=== PATIENT | female | born 1965 | race Caucasian/White ===

== ENCOUNTER 2024-12-28 15:48 | Inpatient (IN) | payer OTHER, SELFPAY ==
[2024-12-28] VITALS (14 sets, daily range): BP systolic 103–152; BP diastolic 57–81; BMI 27.2
[2024-12-28 11:58] LABS: Hematocrit 40.7 % (37.0-47.0); Hemoglobin 13.4 g/dL (12.0-16.0); Mean Corp Hgb Conc. 32.9 g/dL (33.0-37.0); Mean Corpuscular Volume 94.2 fL (81.0-99.0); Platelet Count 259 10^3/uL (130-400); Red Cell Dist. Width 12.0 % (11.5-14.5)
[2024-12-28] MEDS: TORADOL 15 MG IV (12:08)
[2024-12-28] MEDS: DILAUDID 0.5 MG IV ×3 (12:08→15:47)
[2024-12-28] MEDS: NSS 500 IV (12:09)
[2024-12-28 12:14] LABS: ALT (SGPT) 17 U/L (0-35); AST (SGOT) 23 U/L (14-36); Albumin 4.8 g/dl (3.5-5.0); Alkaline Phosphatase 68 U/L (38-126); Blood Urea Nitrogen 14 mg/dl (7-17); Calcium 10.0 mg/dl (8.4-10.2); Carbon Dioxide 24 mmol/L (22-30); Chloride 105 mmol/L (98-107); Glucose 114 mg/dl (70-99); Potassium 4.2 mmol/L (3.5-5.1); Sodium 138 mmol/L (135-145); Total Protein 7.8 g/dl (6.3-8.2); eGFR > 60.00
--- NOTE | 2024-12-28 12:54 | ED.MUSCINJ ---
HPI-Injury
General
Chief Complaint: Musculo-Skeletal Complaint
Time Seen by Provider: 12/28/24 11:49
Nursing documentation reviewed up to this point in time: agreed with
History of Present Illness-Injury
Initial Injury comments:
59-year-old female presents to the ER via EMS for evaluation and treatment of severe pain in her left ankle after she tripped while walking down the steps. Patient believes that her foot completely plantarflexed and she now feels as though her left
foot is dangling. She also reports a mild discomfort in her right ankle. She denies having struck her head as she was able to catch herself with her hands. She denies any use of anticoagulants. No prior history of injury to this extremity. She
did not take any pain medications prior to arrival.
Phy Exam
Physical Exam
Physical Exam:
Patient is awake, alert, appears uncomfortable but in no acute distress, head is normocephalic atraumatic, wearing glasses, moving bilateral upper extremities without any difficulty, pelvis is stable to rock, no pain on palpation throughout
palpatory exam of right lower extremity from thigh, knee, lower leg, ankle to foot, 2+ DP pulses present symmetric bilateral feet with brisk cap refill to the toes, left lower extremity exam reveals exquisite pain on even light touch to the left
ankle which is grossly deformed with posterior displacement of the foot in comparison to normal light of right foot, no pain on palpation of proximal lower leg or left knee, GCS is 15
Injury Course
Orders/Labs/Results
Orders:
Orders
12/28/24 11:49
CMP [Comprehensive Metabolic Panel] Urgent
Complete Blood Count/No Diff Urgent
12/28/24 12:01
HYDROmorphone [Dilaudid] 0.5 mg IV NOW STA
Ketorolac [Toradol] 15 mg IV NOW STA
12/28/24 12:03
0.9% Sodium Chloride 500 ml [Nss] 500 ml IV BOLUS
Ankle, Right 3 view CR [CR Ankle - Right Min 3 Views *] Urgent
Comment: portable- wont tolerate movement
Reason For Exam: trauma
Ankle, left 3 view CR [CR Ankle - Left Min 3 Views ] Urgent
Comment: portable- wont tolerate moving
Reason For Exam: trauma
CR Leg Tibia/fibula Left 2 Vw Urgent
Comment:
Reason For Exam: trauma
12/28/24 12:33
HYDROmorphone [Dilaudid] 0.5 mg IV NOW STA
12/28/24 13:16
HYDROmorphone [Dilaudid] 1 mg IV NOW STA
12/28/24 14:20
Lower Ext Left wo Contrast CT [CT Lower Ext W/o Iv Cont Lt] Urgent
Comment:
Reason For Exam: ankle fracture dislocation
12/28/24 14:21
PODIATRY CONSULT Urgent
Consulting Provider: Julian Vickers
Was physician already notified: Yes
Abnormal Lab Results
12/28/24
11:49
MCHC 32.9 L g/dL
(33.0-37.0)
Glucose 114 H mg/dl
(70-99)
12/28/24 11:49
12/28/24 11:49
CBC normal. Electrolytes within normal limits with preserved kidney function
Procedures
Joint/Fracture Reduction
Left Lower Ankle:
Indication for procedure:: fracture dislocation
Procedure completed by: Xavier Huerta
Joint reduced: without anesthesia
Injury was: closed
Further treatement: needs further treatment
Post reduction exam: unstable
Capillary Refill: normal
Normal distal neurovascular exam?: Yes
MDM/Problems Addressed
Differential Diagnosis Includes:
Differential diagnosis to consider but not limited to sprain, strain, trimalleolar fracture along with other etiologies considered
*Radiology
Radiology exam reviewed: preliminary read by ED provider (I independently viewed and interpreted x-ray the right ankle show no fracture, no malalignment. I independently viewed and interpreted x-ray of the left ankle showing comminuted distal
tib-fib fracture with anterior dislocation of the tibia)
*Pulse Oximetry
SaO2: 99
Oxygen Mode of Delivery: Room air
Patient hypoxic: no
*Critical Care Note
Total Time (30-74mins, 75-104mins- exclusive of procedures): Not Applicable
Update Note
Update Note:
Patient reports that when she received propofol in the past she was sedated for days, that she did not tolerate anesthesia well. Patient was given additional dose of Dilaudid prior to me applying longitudinal traction. There was improvement in the
alignment of the joint, however during splinting patient spasmed and redislocated. Splint was applied. I reached out to orthopedics on-call who would defer case to podiatry. Will discuss with hospitalist for admission as patient will require
inpatient surgery given the unstable nature of injury
I was able to review full patient presentation, ER course, x-rays with Dr. Vickers, podiatry. He would request CT and will see patient in consultation for definitive treatment of unstable ankle fracture dislocation. I reviewed full patient
presentation with the hospitalist accepts patient for admission for further care
ED Attending Note
-
Portions of this chart may have been created with voice recognition software.� Occasional wrong word or��sound alike� substitutions may have occurred due to the inherent limitations of voice recognition software.
Discharge Plan
Departure
Referrals:
Ann Toure DO [Family Provider, Family Practice]
Interventions
Interventions:
*Risk Screen - Suicide Last Done: 12/28/24 11:24
*General Assessment Last Done: 12/28/24 11:24
*Neglect/Abuse Screening Last Done: 12/28/24 11:24
*ED- Fall Risk Assessment Last Done: 12/28/24 11:30
*ED COVID-19 Vaccine History Last Done: 12/28/24 11:24
ED-Musculoskeletal Assessment Last Done: 12/28/24 11:30
Discharge Date and Time
Print Language: FAROESE
[2024-12-28] MEDS: DILAUDID 1 MG IV (13:28)
--- NOTE | 2024-12-28 14:49 | W.PN.UPDATE ---
Update Note
Progress Note Update
I personally performed a history and physical exam of the patient and discussed management with the resident. I reviewed the resident's note and agree with the documented findings and plan of care HPI/CC.
59-year-old female presents with severe left ankle pain after mechanical fall.
107/59, 66, 9, 99% RA
Gen: NAD, AAOx3.
Eyes: EOMI, PERRLA, no scleral icterus.
Neck: supple.
CV: RRR, +S1/S2, no m/r/g.
Resp: CTAB, no rales, wheezes, or rhonchi.
Abd: +BS, soft, NT, ND
Skin: No rashes.
Neuro: CN 2-12 intact, non-focal.
Psych: Normal mood and affect.
Allergies
Allergy/AdvReac Type Severity Reaction Status Date / Time
propofol Allergy Delayed Verified 12/28/24 13:21
arousal
solifenacin Allergy Unknown Verified 12/28/24 11:39
zolpidem Allergy Unknown Verified 12/28/24 11:39
Lab Results
12/28/24
11:49
WBC 8.0
RBC 4.32
Hgb 13.4
Hct 40.7
MCV 94.2
MCH 31.0
MCHC 32.9 L
RDW 12.0
Plt Count 259
MPV 10.3
Sodium 138
Potassium 4.2
Chloride 105
Carbon Dioxide 24
BUN 14
Creatinine 0.6
eGFR > 60.00
Glucose 114 H
Calcium 10.0
Total Bilirubin 0.7
AST 23
ALT 17
Alkaline Phosphatase 68
Total Protein 7.8
Albumin 4.8
L-ankle/Tib-fib Xray: Likely trimalleolar fracture of the distal left tibia and fibula with accompanying disruption of the ankle mortise.
Acute L (likely) Trimalleolar fx:
-s/p closed reduction in the ER
-check CT L ankle to better assess fx
-Regarding perioperative cardiovascular risk assessment for noncardiac surgery, the patient is not diabetic and does not have chronic kidney disease/acute kidney injury. MET > 4, no history of of unstable angina or evidence of decompensated heart
failure. The patient is extremely low risk for any planned orthopedic surgery and I recommend proceeding with any planned orthopedic surgery.
-c/s podiatry
-pain control
FULL/Lovenox
--- NOTE | 2024-12-28 15:43 | HPS.HSE ---
Family Physician
-
Family Physician: Ann Toure
Chief Complaint
-
Left ankle Pain
History of Present Illness
Patient is a 59 year old female with a past medical history of overactive bladder who presents to the ER via EMS after tripping down one flight of stairs and presenting with with left ankle pain. She describes the pain as stabbing excruciating,
moderate in intensity, non radiating, has gotten progressivley worse over the last 30 mins. Patient is unable to put weight on her left lower extremity. No numbness, coldness, tingling. No previous similar injury. No comorbities like htn, vascular
disease, or diabetes. Does not take any anticoagulants.
Medical History
Past Medical History
Past Medical History: Reports Other (overactive bladder)
Past Surgical History: Reports None
Social History
Tobacco: Non-smoker
Alcohol: Occasional
Drug: None
Personal:
Living: With Family
Family History
Family History: Not pertinent
Allergies / Home Medications
Allergies reflects when Allergies were last updated in [facility] [employer].
Home Medications with original date entered in [facility]
Allergy/Medication List:
Allergies
Allergy/AdvReac Type Severity Reaction Status Date / Time
propofol Allergy Delayed Verified 12/28/24 13:21
arousal
solifenacin Allergy Unknown Verified 12/28/24 11:39
zolpidem Allergy Unknown Verified 12/28/24 11:39
Home Medications
elderberry fruit 200 mg capsule 200 mg PO DAILY 12/28/24
estradiol 1 mg tablet 1 mg PO DAILY 12/28/24
progesterone micronized 100 mg capsule 100 mg PO HS 12/28/24
therapeutic multivitamin 1 tab PO DAILY 12/28/24
Review of Systems
-
History Source: Patient
A 12 point ROS was completed and negative except as noted: Yes
Musculoskeletal: Reports Joint Pain (lower left extremity), Joint Swelling (lower left extremity) and Muscle Pain (lower left extremity )
Physical Exam
Vital Signs
Vital Signs
Pulse Resp BP Pulse Ox
66 9 107/59 99
12/28/24 13:16 12/28/24 13:15 12/28/24 13:16 12/28/24 12:59
Physical Exam
General: Appears in Distress and Pain
Respiratory: Clear
Cardiac: S1/S2 and Regular Rhythm
GI: Soft, Non Tender, Non Distended and Normal Bowel Sounds
Musculoskeletal: No Clubbing, No Cyanosis and Edema, Left Lower Extremity; No Normal Gait & Station
Skin: Warm and Dry
Neuro: Awake, AO x 3 and No Sensory Deficits; No DTR's Intact & Symmetrical (unable to assess on left lower extremity due to being wrapped with cast.)
Laboratory Results
-
12/28/24 11:49
12/28/24 11:49
Laboratory Results
Total Bilirubin 0.7 mg/dl (0.2-1.3) 12/28/24 11:49
AST 23 U/L (14-36) 12/28/24 11:49
ALT 17 U/L (0-35) 12/28/24 11:49
Alkaline Phosphatase 68 U/L (38-126) 12/28/24 11:49
Data Reviewed
-
Diagnostic Radiology: Report Reviewed by me and Discussed with Physician
Lab Data: Labs Reviewed by me and Discussed with Physician
Impression/Plan
-
1. Trimalleolar fracture of the distal left tibia/ fibula:
- Consulted podiatry
- Xray of the tibula/ fibula reveals a likely trimalleolar fracture of the distal left tibia and fibula with accompanying disruption of the ankle mortise
- CT scan of the lower extremity confirms Highly comminuted and displaced trimalleolar fracture with posterior subluxation of the talus relative to the distal tibia.
- Patient is unable to bear weight on the left lower extremity. No loss of sensation, vibration, or coldness of extremities
- Ordered pain medication
- NPO in anticipation of surgery tommorow
- Pre-op CV assessment- no comorbid conditions like CAD, DMT2, HTN, CHF, Met score >4, no home medications like vicente/arbs, no recent adverse cardiac events--> patient is low risk for any planned surgery
DVT ppx: lovenox sq
Full code
--- NOTE | 2024-12-28 17:35 | EDRN ---
Patient taken to OR by industrial tech instructor. took belongings home except for glasses and cell phone.
--- NOTE | 2024-12-28 17:52 | W.PN.UPDATE ---
Update Note
Progress Note Update
s/p left ankle Ex fix application
-Plan for ORIF after swelling subsides
-NWB LLE
-PT/OT
-Ancef x 3 doses
-Dressings C/D/I, Ice behind knee
-Anticipate admission for ambulatory dysfunction until ORIF completed
-Will follow
[2024-12-28] MEDS: ZOFRAN 4 MG IV (19:26)
[2024-12-28] MEDS: SUBLIMAZE 25 MCG IV (19:37)
[2024-12-28] MEDS: DILAUDID 0.25 MG IV ×2 (19:51→20:03)
--- NOTE | 2024-12-28 20:51 | SUR.PHASEI ---
Asked Dr. Vickers about CT scan, and he updated CT scan that it will be done tomorrow. Gracie MARCELO made aware of plan
[2024-12-28] MEDS: ROXICODONE 5 MG PO (21:06)
[2024-12-28] MEDS: LOVENOX 40 MG SC (21:07)
[2024-12-28] MEDS: COLACE 100 MG PO (21:07)
[2024-12-28] MEDS: SENOKOT 17.2 MG PO (21:07)
--- NOTE | 2024-12-28 21:30 | PTCARENOTE ---
2140- Pt received from PACU s/p external fixator application (Elva Vickers). Medsurg order/ Post op- VSS. Dressing/hardware- C/D/I. PMH reviewed by this RN and patient. Plan of care discussed. Call loredo within reach.
[2024-12-28] MEDS: TYLENOL 650 MG PO (23:56)
[2024-12-29] VITALS (8 sets, daily range): BP systolic 90–118; BP diastolic 44–81; PULSE 71–75; O2SAT 99
[2024-12-29] MEDS: DILAUDID 0.5 MG IV ×5 (00:01→17:03)
[2024-12-29] MEDS: ANCEF 5 IV ×3 (02:00→16:54)
[2024-12-29] MEDS: ROXICODONE 5 MG PO ×5 (02:31→22:37)
[2024-12-29] MEDS: TYLENOL 650 MG PO ×5 (04:52→20:19)
[2024-12-29 06:11] LABS: Hematocrit 33.7 % (37.0-47.0); Hemoglobin 11.4 g/dL (12.0-16.0); Mean Corp Hgb Conc. 33.8 g/dL (33.0-37.0); Mean Corpuscular Volume 92.1 fL (81.0-99.0); Nucleated Red Blood Cells % 0 %; Platelet Count 222 10^3/uL (130-400); Red Cell Dist. Width 11.9 % (11.5-14.5)
[2024-12-29 06:38] LABS: ALT (SGPT) 14 U/L (0-35); AST (SGOT) 22 U/L (14-36); Albumin 3.7 g/dl (3.5-5.0); Alkaline Phosphatase 52 U/L (38-126); Blood Urea Nitrogen 9 mg/dl (7-17); Calcium 8.9 mg/dl (8.4-10.2); Carbon Dioxide 23 mmol/L (22-30); Chloride 110 mmol/L (98-107); Estimated Creatinine Clearance 103 ml/min; Glucose 121 mg/dl (70-99); Potassium 4.4 mmol/L (3.5-5.1); Sodium 137 mmol/L (135-145); Total Protein 6.2 g/dl (6.3-8.2); eGFR > 60.00
[2024-12-29] MEDS: SENOKOT 17.2 MG PO ×2 (07:57→20:19)
[2024-12-29] MEDS: COLACE 100 MG PO ×2 (07:57→20:19)
--- NOTE | 2024-12-29 08:02 | W.PN.UPDATE ---
Update Note
Progress Note Update
s/p left ankle Ex fix application
-Plan for ORIF after swelling subsides, plan for Friday01/03/25
-NWB LLE
-PT/OT
-Ancef x 3 doses
-Dressings C/D/I, Ice behind knee
-consider Duplex for calf pain
-Anticipate admission for ambulatory dysfunction until ORIF completed
-Will follow
--- NOTE | 2024-12-29 10:03 | W.PN.HOSP.TC ---
Today's Communication/Plan
-
- ORIF planned for friday01/03/25
Assessment / Plan
Assessment / Plan
1. Trimalleolar fracture of the distal left tibia/ fibula
Status post day1 of external fixation device of left lower extremity device with ORIF planned on 01/03/25 :
- Podiatry following
- Xray of the tibula/ fibula reveals a likely trimalleolar fracture of the distal left tibia and fibula with accompanying disruption of the ankle mortise
- CT scan of the lower extremity confirms Highly comminuted and displaced trimalleolar fracture with posterior subluxation of the talus relative to the distal tibia.
- Patient is unable to bear weight on the left lower extremity. No loss of sensation, vibration, or coldness of extremities
- Ordered pain medication for appropriate level of pain
- Pre-op CV assessment- no comorbid conditions like CAD, DMT2, HTN, CHF, Met score >4, no home medications like vicente/arbs, no recent adverse cardiac events--> patient is low risk for any planned surgery
-PT/OT ordered
-Ancef x 3 doses for infection prevention
- continue regular diet
DVT ppx: lovenox sq
Full code
Anticipated Discharge: 24 - 48 hours
Subjective/Interval History
-
Date of Service: December 29, 2024
patient is status post day 1 left ankle Ex fix application
No acute medical complaints
Objective Data
-
Labs:
Laboratory Results
12/29/24
05:38
WBC 6.3
Hgb 11.4 L
Hct 33.7 L
Plt Count 222
Sodium 137
Potassium 4.4
Chloride 110 H
Carbon Dioxide 23
BUN 9
Creatinine 0.5 L
Glucose 121 H
Calcium 8.9
Total Bilirubin 0.6
AST 22
ALT 14
Alkaline Phosphatase 52
Vital Signs:
Vital Signs
Temp Pulse Resp BP Pulse Ox
97.9 F 62 16 109/57 99
12/29/24 07:45 12/29/24 07:45 12/29/24 03:07 12/29/24 07:45 12/29/24 07:45
I&O
12/28/24 12/29/24 12/30/24
06:59 06:59 06:59
Intake Total 1580 / 1580
Balance 1580 / 1580
Review of Systems
-
History Source: Patient
All other systems: Reviewed and negative
Musculoskeletal: Reports Muscle Pain
Physical Exam
-
Respiratory: Clear to Auscultation
Cardiac: Regular Rhythm and S1/S2
GI: Soft, Nontender, Nondistended and Normal Bowel Sounds
Musculoskeletal: Edema, Left Upper Extrem and Other (Patient has a external fixation device on left lower extremity and is non weight bearing on that leg )
Skin: Warm and Dry
Neuro: Awake, Alert, Oriented and AO x 3
Psych: Calm
Data Reviewed
-
Labs: Labs Reviewed by me and Discussed with Physician
--- NOTE | 2024-12-29 11:41 | W.PN.UPDATE ---
Update Note
Progress Note Update
I saw and evaluated the patient. I reviewed the resident�s note and agree with findings and plan as documented in the resident�s note.
Gen: NAD, AAOx3.
Eyes: EOMI, PERRLA, no scleral icterus.
Neck: supple.
CV: remains RRR, +S1/S2, no m/r/g.
Resp: remains CTAB, no rales, wheezes, or rhonchi.
Abd: remains +BS, soft, NT, ND
Skin: No rashes.
Neuro: CN 2-12 intact, non-focal.
Psych: Normal mood and affect.
CT LLE: Trimalleolar ankle fracture in improved alignment status post external fixation.
Acute L Trimalleolar fx:
-s/p closed reduction in the ER followed by external fixation by podiatry 12/28/24
-imaging above
-Regarding perioperative cardiovascular risk assessment for noncardiac surgery, the patient is not diabetic and does not have chronic kidney disease/acute kidney injury. MET > 4, no history of of unstable angina or evidence of decompensated heart
failure. The patient is extremely low risk for any planned orthopedic surgery and I recommend proceeding with any planned orthopedic surgery.
-podiatry managing
-pain control
FULL/Lovenox
--- NOTE | 2024-12-29 12:27 | CM ---
CM following re: discharge planning.
Reviewed pt's chart, met with pt and pot's at bedside.
Pt is a 59 year old female, admitted with primary dx of Trimalleolar fracture of the distal left tibia/ fibula, Status post day1 of external fixation device of left lower extremity device with ORIF planned on 01/03/25
Pt reports she lives with 2SH, 1 step to enter, has 2 supportive children. Pt described herself as independent in all areas [employer]. pt is aware she will for OR on Friday.
PT and OT will re-evaluate the pt after surgery to determine a level of care at discharge.
PCP: Ann Toure
Pharmacy: [facility]
D/C plan: probably home with necessary DME and family support.
CM will follow with discharge plan updates as hospitalization progresses
[2024-12-29] MEDS: LOVENOX 40 MG SC (16:54)
[2024-12-29] MEDS: TORADOL 10 MG PO (16:54)
[2024-12-30] MEDS: TYLENOL 650 MG PO ×5 (00:03→19:53)
[2024-12-30] MEDS: ANCEF 5 IV ×3 (01:24→17:08)
[2024-12-30] MEDS: DILAUDID 0.5 MG IV (04:33)
--- NOTE | 2024-12-30 06:46 | W.PN.UPDATE ---
Update Note
Progress Note Update
s/p left ankle Ex fix application
-Plan for ORIF after swelling subsides, plan for Friday01/03/25
-NWB LLE
-PT/OT
-Pain control prn, multimodal approach
-Dressings C/D/I, Ice behind knee
-Anticipate admission for ambulatory dysfunction until ORIF completed
-Will follow
[2024-12-30 07:06] VITALS: BP 107/61
[2024-12-30 08:08] LABS: Hematocrit 36.5 % (37.0-47.0); Hemoglobin 11.8 g/dL (12.0-16.0); Mean Corp Hgb Conc. 32.3 g/dL (33.0-37.0); Mean Corpuscular Volume 95.3 fL (81.0-99.0); Nucleated Red Blood Cells % 0 %; Platelet Count 233 10^3/uL (130-400); Red Cell Dist. Width 12.5 % (11.5-14.5)
[2024-12-30 08:36] LABS: ALT (SGPT) 12 U/L (0-35); AST (SGOT) 22 U/L (14-36); Albumin 4.0 g/dl (3.5-5.0); Alkaline Phosphatase 50 U/L (38-126); Blood Urea Nitrogen 10 mg/dl (7-17); Calcium 9.5 mg/dl (8.4-10.2); Carbon Dioxide 26 mmol/L (22-30); Chloride 107 mmol/L (98-107); Estimated Creatinine Clearance 103 ml/min; Glucose 92 mg/dl (70-99); Potassium 4.1 mmol/L (3.5-5.1); Sodium 138 mmol/L (135-145); Total Protein 6.8 g/dl (6.3-8.2); eGFR > 60.00
[2024-12-30] MEDS: NEURONTIN 300 MG PO ×2 (08:38→17:10)
[2024-12-30] MEDS: ROXICODONE 5 MG PO ×3 (08:38→19:53)
[2024-12-30] MEDS: SENOKOT 17.2 MG PO ×2 (08:39→19:52)
[2024-12-30] MEDS: COLACE 100 MG PO ×2 (08:39→19:53)
[2024-12-30] MEDS: TYLENOL PO (08:39)
--- NOTE | 2024-12-30 09:29 | W.PN.HOSP.TC ---
Today's Communication/Plan
-
see plan
Assessment / Plan
Assessment / Plan
Gen: NAD, AAOx3.
Eyes: EOMI, PERRLA, no scleral icterus.
Neck: supple.
CV: continues to remain RRR, +S1/S2, no m/r/g.
Resp: continues to remain CTAB, no rales, wheezes, or rhonchi.
Abd: continues to remain +BS, soft, NT, ND
Skin: No rashes.
Neuro: CN 2-12 intact, non-focal.
Psych: Normal mood and affect.
CT LLE: Trimalleolar ankle fracture in improved alignment status post external fixation.
Acute L Trimalleolar fx:
-s/p closed reduction in the ER followed by external fixation by podiatry 12/28/24
-imaging above
-Regarding perioperative cardiovascular risk assessment for noncardiac surgery, the patient is not diabetic and does not have chronic kidney disease/acute kidney injury. MET > 4, no history of of unstable angina or evidence of decompensated heart
failure. The patient is extremely low risk for any planned orthopedic surgery and I recommend proceeding with any planned orthopedic surgery.
-podiatry managing
-pain control
FULL/Lovenox
Anticipated Discharge: > 48 hours
Subjective/Interval History
-
Date of Service: December 30, 2024
No new complaints.
Objective Data
-
Labs:
Laboratory Results
12/30/24
07:15
WBC 6.9
Hgb 11.8 L
Hct 36.5 L
Plt Count 233
Sodium 138
Potassium 4.1
Chloride 107
Carbon Dioxide 26
BUN 10
Creatinine 0.6
Glucose 92
Calcium 9.5
Total Bilirubin 0.5
AST 22
ALT 12
Alkaline Phosphatase 50
Vital Signs:
Vital Signs
Temp Pulse Resp BP Pulse Ox
97.9 F 71 18 107/61 100
12/30/24 07:06 12/30/24 07:06 12/30/24 07:06 12/30/24 07:06 12/30/24 07:06
I&O
12/29/24 12/30/24 12/31/24
06:59 06:59 06:59
Intake Total 1580 / 1580 660 / 660
Balance 1580 / 1580 660 / 660
[2024-12-30] MEDS: MOTRIN 600 MG PO ×2 (14:27→21:46)
[2024-12-30] MEDS: NEURONTIN PO (14:30)
--- NOTE | 2024-12-30 14:43 | PTCARENOTE ---
S patient worked with PT/OT today. Patient educated on the importance of contacting staff when needing to get on/off bedside commode, bed viera usage, and OOB to chair. Patient was instructed to not participate in these task and it must be
deferred to staff due to risk of injury. Patient and verbalized understanding.
B patient admitted with trimalleolar Fx of distal left tibia and fibula
A see online data base
R Patient was assisted to bedside commode by assisted living nursing director in attempts to have a BM. Patient was instructed to use call loredo when finished. When PCT went to check on patient, she got herself back in bed without asking for assistance. Patient was
educated again by RN/PT/OT on the importance of using call bed to avoid any bodily injury. Patient exhibits challenging behavior, including frequent questioning of nursing judgment and care decisions. She often provides conflicting information,
claiming to have received instructions from staff that can not be verified. Patient demonstrates manipulative tendencies and engages in behavior that creates confusion or undermines staff efforts. Interaction are frequently marked by rudeness and
hostility.
--- NOTE | 2024-12-30 14:47 | CM ---
CM following re: discharge planning.
Reviewed pt's chart.
Pt is s/p left ankle Ex fix application, plan for ORIF after swelling subsides, plan for Friday01/03/25, NWB, continue supportive care.
Pt lives with 2SH, 1 step to enter, has 2 supportive children and pt is independent in all areas [employer]. Pt is aware she is for OR on Friday.
PT and OT will re-evaluate the pt after surgery to determine a level of care at discharge.
D/C plan: probably home with necessary DME and family support.
CM will follow with discharge plan updates as hospitalization progresses
[2024-12-30 15:07] VITALS: BP 96/59
[2024-12-30] MEDS: LOVENOX 40 MG SC (17:08)
[2024-12-30 23:09] VITALS: BP 99/57
[2024-12-31] MEDS: ROXICODONE 5 MG PO ×3 (00:14→21:49)
[2024-12-31] MEDS: NEURONTIN 300 MG PO ×3 (00:14→15:43)
[2024-12-31] MEDS: TYLENOL 650 MG PO ×5 (00:14→19:42)
[2024-12-31] MEDS: ANCEF 5 IV ×3 (02:24→17:46)
[2024-12-31] MEDS: TYLENOL PO (03:54)
[2024-12-31 07:20] VITALS: BP 101/61
[2024-12-31] MEDS: SENOKOT 17.2 MG PO ×2 (07:52→19:42)
[2024-12-31] MEDS: COLACE 100 MG PO ×2 (07:52→19:42)
[2024-12-31] MEDS: MOTRIN 600 MG PO ×3 (07:52→21:49)
--- NOTE | 2024-12-31 09:45 | W.PN.HOSP.TC ---
Today's Communication/Plan
-
see plan
Assessment / Plan
Assessment / Plan
Gen: remains NAD, AAOx3.
Eyes: remains EOMI, PERRLA, no scleral icterus.
Neck: supple.
CV: RRR, +S1/S2, no m/r/g.
Resp: CTAB, no rales, wheezes, or rhonchi.
Abd: +BS, soft, NT, ND
Skin: No rashes.
Neuro: remains CN 2-12 intact, non-focal.
Psych: Normal mood and affect.
CT LLE: Trimalleolar ankle fracture in improved alignment status post external fixation.
Acute L Trimalleolar fx:
-s/p closed reduction in the ER followed by external fixation by podiatry 12/28/24
-imaging above
-Regarding perioperative cardiovascular risk assessment for noncardiac surgery, the patient is not diabetic and does not have chronic kidney disease/acute kidney injury. MET > 4, no history of of unstable angina or evidence of decompensated heart
failure. The patient is extremely low risk for any planned orthopedic surgery and I recommend proceeding with any planned orthopedic surgery.
-podiatry managing
-pain control
-plan for ORIF 01/03/25. Case discussed with Dr. Vickers. He plans to see pt again on 01/03/25AM preop.
-start Miralax
FULL/Lovenox
Anticipated Discharge: > 48 hours
Subjective/Interval History
-
Date of Service: December 31, 2024
c/o constipation
Objective Data
-
Vital Signs:
Vital Signs
Temp Pulse Resp BP Pulse Ox
98.1 F 72 20 101/61 98
12/31/24 07:20 12/31/24 07:20 12/31/24 07:20 12/31/24 07:20 12/31/24 07:20
I&O
12/30/24 12/31/24 01/01/25
06:59 06:59 06:59
Intake Total 660 / 660 520 / 520
Balance 660 / 660 520 / 520
--- NOTE | 2024-12-31 12:03 | CM ---
CM following re: discharge planning.
Reviewed pt's chart.
Pt is s/p left ankle Ex fix application, plan for ORIF after swelling subsides, plan for Friday01/03/25, NWB, continue supportive care.
Pt lives with 2SH, 1 step to enter, has 2 supportive children and pt is independent in all areas [employer]. Pt is aware she is for OR on Friday.
PT and OT will re-evaluate the pt after surgery to determine a level of care at discharge.
D/C plan: probably home with necessary DME and family support.
CM will follow with discharge plan updates as hospitalization progresses
[2024-12-31] MEDS: ROXICODONE 2.5 MG PO (12:41)
[2024-12-31] MEDS: MIRALAX 17 GRAMS PO (13:45)
[2024-12-31 15:46] VITALS: BP 107/62
[2024-12-31] MEDS: LOVENOX 40 MG SC (17:46)
[2024-12-31 23:05] VITALS: BP 96/60
[2025-01-01] MEDS: TYLENOL PO ×2 (00:25→23:12)
[2025-01-01] MEDS: ANCEF 5 IV ×3 (02:45→17:01)
[2025-01-01] MEDS: TYLENOL 650 MG PO ×5 (03:31→19:59)
[2025-01-01] MEDS: ROXICODONE 2.5 MG PO ×2 (03:32→21:46)
[2025-01-01] MEDS: MILK OF MAGNESIA 30 ML PO (03:39)
[2025-01-01 07:15] VITALS: BP 104/60
--- NOTE | 2025-01-01 07:37 | W.PN.UPDATE ---
Update Note
Progress Note Update
Patient resting comfortably in bed. Ex-Fix left ankle in place. elevated up on multiple pillows. Continue Tx per primary team. Plan for definitive ORIF on Friday via Dr. Vickers, assuming acceptable improvement in swelling. Continue NWB
LLE. pain control. Will follow
--- NOTE | 2025-01-01 07:54 | W.PN.HOSP.TC ---
Today's Communication/Plan
-
see plan
Assessment / Plan
Assessment / Plan
Gen: continues to remain NAD, AAOx3.
Eyes: continues to remain EOMI, PERRLA, no scleral icterus.
Neck: supple.
CV: RRR, +S1/S2, no m/r/g.
Resp: CTAB, no rales, wheezes, or rhonchi.
Abd: +BS, soft, NT, ND
Skin: No rashes.
Neuro: continues to remain CN 2-12 intact, non-focal.
Psych: Normal mood and affect.
CT LLE: Trimalleolar ankle fracture in improved alignment status post external fixation.
Acute L Trimalleolar fx:
-s/p closed reduction in the ER followed by external fixation by podiatry 12/28/24
-imaging above
-Regarding perioperative cardiovascular risk assessment for noncardiac surgery, the patient is not diabetic and does not have chronic kidney disease/acute kidney injury. MET > 4, no history of of unstable angina or evidence of decompensated heart
failure. The patient is extremely low risk for any planned orthopedic surgery and I recommend proceeding with any planned orthopedic surgery.
-podiatry managing
-pain control
-Mag Citrate x 1 today for constipation
-plan for ORIF 01/03/25. Case discussed with Dr. Vickers. He plans to see pt again on 01/03/25AM preop.
FULL/Lovenox
Anticipated Discharge: > 48 hours
Subjective/Interval History
-
Date of Service: January 01, 2025
c/o constipation
Objective Data
-
Vital Signs:
Vital Signs
Temp Pulse Resp BP Pulse Ox
97.8 F 68 17 96/60 98
12/31/24 23:05 12/31/24 23:05 12/31/24 23:05 12/31/24 23:05 12/31/24 23:05
I&O
12/31/24 01/01/25 01/02/25
06:59 06:59 06:59
Intake Total 520 / 520 1849
Balance 520 / 520 1849
[2025-01-01] MEDS: MIRALAX 17 GRAMS PO (08:36)
[2025-01-01] MEDS: SENOKOT 17.2 MG PO (08:36)
[2025-01-01] MEDS: COLACE 100 MG PO (08:37)
[2025-01-01] MEDS: MOTRIN 600 MG PO ×3 (08:37→21:43)
[2025-01-01] MEDS: FLUSH (NSS) 2 FLUSH IV ×2 (08:52→17:07)
[2025-01-01] MEDS: CITROMA 300 ML PO (10:00)
[2025-01-01 15:10] VITALS: BP 100/53
[2025-01-01] MEDS: LOVENOX 40 MG SC (17:01)
[2025-01-01] MEDS: COLACE PO (19:58)
[2025-01-01] MEDS: SENOKOT PO (19:59)
[2025-01-01 23:36] VITALS: BP 147/69
[2025-01-02] MEDS: TYLENOL 650 MG PO ×5 (03:05→21:04)
[2025-01-02 07:30] VITALS: BP 105/65
[2025-01-02] MEDS: COLACE PO ×2 (08:02→21:22)
[2025-01-02] MEDS: SENOKOT PO ×2 (08:02→21:22)
[2025-01-02] MEDS: MIRALAX PO (08:02)
[2025-01-02] MEDS: MOTRIN 600 MG PO ×3 (08:03→22:20)
--- NOTE | 2025-01-02 11:28 | W.PN.HOSP.TC ---
Today's Communication/Plan
-
Assessment / Plan
Assessment / Plan
Gen: continues to remain NAD, AAOx3.
Eyes: continues to remain EOMI, no scleral icterus.
Neck: supple.
CV: Regular rhythm, controlled rate
Resp: Equal expansion bilaterally, no increased respiratory effort
Abd: +BS, nondistended
MSK: Left lower extremity external fixation
Skin: No rashes.
Neuro: continues to remain CN 2-12 intact, non-focal.
Psych: Normal mood and affect.
CT LLE: Trimalleolar ankle fracture in improved alignment status post external fixation.
Acute L Trimalleolar fx:
-s/p closed reduction in the ER followed by external fixation by podiatry 12/28/24
-Regarding perioperative cardiovascular risk assessment for noncardiac surgery, the patient is not diabetic and does not have chronic kidney disease/acute kidney injury. MET > 4, no history of of unstable angina or evidence of decompensated heart
failure. The patient is extremely low risk for any planned orthopedic surgery and I recommend proceeding with any planned orthopedic surgery.
-podiatry managing
-pain control
-plan for ORIF 01/03/[address] Vickers.
FULL/Lovenox
Anticipated Discharge: 24 - 48 hours
Subjective/Interval History
-
Date of Service: January 02, 2025
Patient was seen and examined at bedside this morning. No acute events overnight. Anxiously awaiting surgical fixation of her left lower extremity fractures tomorrow 01/03.
Objective Data
-
Vital Signs:
Vital Signs
Temp Pulse Resp BP Pulse Ox
98.4 F 85 16 105/65 97
01/02/25 07:30 01/02/25 07:30 01/02/25 07:30 01/02/25 07:30 01/02/25 08:00
I&O
0801/02/25 01/03/25
06:59 06:59 06:59
Intake Total 1849 1500 / 1500
Balance 1849 1500 / 1500
Review of Systems
-
History Source: Patient
All other systems: Reviewed and negative
Musculoskeletal: Reports Joint Pain (Left lower extremity pain)
Physical Exam
-
General: No Apparent Distress
[2025-01-02] MEDS: ROXICODONE 2.5 MG PO ×2 (13:04→21:06)
[2025-01-02 15:30] VITALS: BP 100/63
[2025-01-02] MEDS: LOVENOX 40 MG SC (17:26)
[2025-01-02] MEDS: FLUSH (NSS) 1 FLUSH IV (21:09)
[2025-01-02 23:10] VITALS: BP 105/69
[2025-01-03] VITALS (10 sets, daily range): BP systolic 84–129; BP diastolic 54–90
[2025-01-03] MEDS: TYLENOL PO ×4 (00:08→17:03)
[2025-01-03] MEDS: ROXICODONE 2.5 MG PO (01:56)
[2025-01-03] MEDS: TYLENOL 650 MG PO ×3 (04:45→20:03)
[2025-01-03 08:15] LABS: Hematocrit 36.7 % (37.0-47.0); Hemoglobin 12.2 g/dL (12.0-16.0); Mean Corp Hgb Conc. 33.2 g/dL (33.0-37.0); Mean Corpuscular Volume 94.3 fL (81.0-99.0); Nucleated Red Blood Cells % 0 %; Platelet Count 253 10^3/uL (130-400); Red Cell Dist. Width 12.0 % (11.5-14.5)
[2025-01-03 08:21] LABS: APTT 25.7 Sec (23.4-35.0); INR 0.94; PT 12.9 Sec (11.4-14.6)
[2025-01-03 08:41] LABS: Blood Urea Nitrogen 11 mg/dl (7-17); Calcium 9.4 mg/dl (8.4-10.2); Carbon Dioxide 26 mmol/L (22-30); Chloride 108 mmol/L (98-107); Estimated Creatinine Clearance 103 ml/min; Glucose 97 mg/dl (70-99); Potassium 4.5 mmol/L (3.5-5.1); Sodium 138 mmol/L (135-145); eGFR > 60.00
[2025-01-03] MEDS: MOTRIN 600 MG PO ×2 (08:56→21:36)
[2025-01-03] MEDS: COLACE PO (08:58)
[2025-01-03] MEDS: MIRALAX PO (08:58)
[2025-01-03] MEDS: SENOKOT PO (08:59)
--- NOTE | 2025-01-03 09:09 | VATNOTE ---
Second IV access placed for OR today at unit request. Right arm median basilic antecub #20 placed without any difficulty. Pt. tolerated well.
--- NOTE | 2025-01-03 09:49 | CM ---
CM following for discharge planning. Pt is scheduled for ORIF today pending improvement in swelling.
--- NOTE | 2025-01-03 12:10 | W.PN.HOSP.TC ---
Today's Communication/Plan
-
Assessment / Plan
Assessment / Plan
Gen: continues to remain NAD, AAOx3.
Eyes: continues to remain EOMI, no scleral icterus.
Neck: supple.
CV: Regular rhythm, controlled rate
Resp: Equal expansion bilaterally, no increased respiratory effort
Abd: +BS, nondistended
MSK: Left lower extremity external fixation
Skin: No rashes.
Neuro: continues to remain CN 2-12 intact, non-focal.
Psych: Normal mood and affect.
CT LLE: Trimalleolar ankle fracture in improved alignment status post external fixation.
Acute L Trimalleolar fx:
-s/p closed reduction in the ER followed by external fixation by podiatry 12/28/24
-Regarding perioperative cardiovascular risk assessment for noncardiac surgery, the patient is not diabetic and does not have chronic kidney disease/acute kidney injury. MET > 4, no history of of unstable angina or evidence of decompensated heart
failure. The patient is extremely low risk for any planned orthopedic surgery and I recommend proceeding with any planned orthopedic surgery.
-podiatry managing
-pain control
-plan for ORIF today 01/03/[address] Vickers.
FULL/Lovenox
Anticipated Discharge: 24 - 48 hours
Subjective/Interval History
-
Date of Service: January 03, 2025
Patient was seen and examined at bedside this morning. N.p.o. past midnight for the OR today with podiatry for surgical fixation of trimalleolar fracture.
Objective Data
-
Labs:
Laboratory Results
01/03/25
07:55
WBC 5.7
Hgb 12.2
Hct 36.7 L
Plt Count 253
PT 12.9
INR 0.94
APTT 25.7
Sodium 138
Potassium 4.5
Chloride 108 H
Carbon Dioxide 26
BUN 11
Creatinine 0.5 L
Glucose 97
Calcium 9.4
Vital Signs:
Vital Signs
Temp Pulse Resp BP Pulse Ox
97.9 F 72 16 102/63 98
01/03/25 07:15 01/03/25 07:15 01/03/25 07:15 01/03/25 07:15 01/03/25 07:15
I&O
01/02/25 01/03/25 01/04/25
06:59 06:59 06:59
Intake Total 1500 / 1500 620 / 620
Balance 1500 / 1500 620 / 620
Review of Systems
-
History Source: Patient
All other systems: Reviewed and negative
Musculoskeletal: Reports Joint Pain (Left ankle pain)
Neuro: Reports Headache
Physical Exam
-
General: No Apparent Distress
--- NOTE | 2025-01-03 15:57 | W.PN.UPDATE ---
Update Note
Progress Note Update
patient s/p left trimal ORIF with Ex Fix removal
-Ancef x 3 doses
-PT/OT, anticipate rehab
-Strict NWB LLE
-Dressings C/D/I
-Will follow
[2025-01-03] MEDS: ZOFRAN 4 MG IV (16:56)
[2025-01-03] MEDS: DILAUDID 0.5 MG IV (16:57)
[2025-01-03] MEDS: MOTRIN PO (17:03)
--- NOTE | 2025-01-03 17:57 | PTCARENOTE ---
Received pt from PACU via bed. Pt AAOX3. Pox: 99% RA. at bedside. Call loredo within reach. Plan of care ongoing.
[2025-01-03] MEDS: LOVENOX 40 MG SC (18:23)
[2025-01-03] MEDS: COLACE 100 MG PO (20:03)
[2025-01-03] MEDS: SENOKOT 17.2 MG PO (20:04)
[2025-01-03] MEDS: ANCEF 5 IV (21:36)
[2025-01-04] VITALS (7 sets, daily range): BP systolic 92–118; BP diastolic 51–77; PULSE 88
[2025-01-04] MEDS: TYLENOL PO (00:22)
[2025-01-04] MEDS: TYLENOL 650 MG PO ×5 (04:47→21:05)
[2025-01-04] MEDS: ANCEF 5 IV ×2 (04:48→12:46)
[2025-01-04] MEDS: MOTRIN 600 MG PO ×3 (08:43→22:19)
[2025-01-04] MEDS: MIRALAX 17 GRAMS PO (08:44)
[2025-01-04] MEDS: SENOKOT PO ×2 (08:47→21:05)
[2025-01-04] MEDS: COLACE PO ×2 (08:48→21:05)
--- NOTE | 2025-01-04 09:30 | PTCARENOTE ---
Pt anxious while this Nurse was assessing Pt this morning. VSS, Pulse ox was 99 RA. Pt c/o dizzness. Relaxation techniques offered. Pt was offended and states ' Laureen had an anxiety disorder since my 20's, this is not anxiety.' Pt instructed that if
her problems continue or get worse to notify Nursing staff. Pt rang her loredo and said that her heart was bounding to the Patient manager medicare marketing. When nurse arrived in Pt's room, her had arrived and now Pt denies bounding heart rate or dizziness.
Will continue to monitor and be available for any concerns. Call loredo is within reach.
--- NOTE | 2025-01-04 10:49 | W.PN.UPDATE ---
Update Note
Progress Note Update
patient s/p left trimal ORIF with Ex Fix removal
-PT/OT, anticipate rehab
-Strict NWB LLE
-Dressings C/D/I
-Will follow
[2025-01-04] MEDS: ROXICODONE 2.5 MG PO (12:20)
--- NOTE | 2025-01-04 12:51 | W.PN.HOSP.TC ---
Today's Communication/Plan
-
Assessment / Plan
Assessment / Plan
Gen: continues to remain NAD, AAOx3.
Eyes: continues to remain EOMI, no scleral icterus.
Neck: supple.
CV: Regular rhythm, controlled rate
Resp: Equal expansion bilaterally, no increased respiratory effort
Abd: +BS, nondistended
MSK: Left lower extremity with postsurgical dressing in place
Skin: No rashes.
Neuro: continues to remain CN 2-12 intact, non-focal.
Psych: Normal mood and affect.
CT LLE: Trimalleolar ankle fracture in improved alignment status post external fixation.
Acute L Trimalleolar fx:
-s/p closed reduction in the ER followed by external fixation by podiatry 12/28/24
- Now status post ORIF 01/03/[address] Vickers, tolerated procedure well
- PT/OT recommending acute rehab,
-podiatry managing
-pain control
FULL/Lovenox
Anticipated Discharge: 24 - 48 hours
Subjective/Interval History
-
Date of Service: January 04, 2025
Patient was seen and examined at bedside this morning. She is status post ORIF with podiatry for bimalleolar fracture. Tolerated procedure well.
Objective Data
-
Vital Signs:
Vital Signs
Temp Pulse Resp BP Pulse Ox
98.6 F 81 18 109/64 100
01/04/25 08:00 01/04/25 09:33 01/04/25 09:33 01/04/25 09:33 01/04/25 09:33
I&O
01/03/25 01/04/25 01/05/25
06:59 06:59 06:59
Intake Total 620 / 620 1360 / 1360 480 / 480
Balance 620 / 620 1360 / 1360 480 / 480
Review of Systems
-
History Source: Patient
All other systems: Reviewed and negative
Musculoskeletal: Reports Joint Pain (Left lower extremity heaviness after nerve block)
Physical Exam
-
General: No Apparent Distress
[2025-01-04] MEDS: NEURONTIN 300 MG PO (16:11)
--- NOTE | 2025-01-04 16:41 | CM ---
Chart reviewed. Patient w/ a left trimalleolar fracture. Post op L ankle ORIF.
Therapy rec acute rehab at d/c. Spoke w/ [facility] unable to accept. Patient is NWB status at this time. Spoke w/ PT, if patient cannot go to rehab and discharges home, will need equipment arranged (hospital bed, knee scooter or w/c).
Spoke w/ patient and spouse, informed [facility] unable to accept. Patient does not want to go to SNF. Patient shared that she wants PT to assist w/ assessing her w/ a knee scooter as she may decide to discharge home. Patient adamant about wanting to
safely be trained on how to operate a knee scooter and how to safely enter her home as she has a few steps to enter and a driveway to her front door. Patient stated she will rent a hospital bed and needs information about that.
TT PT, Anai, about patient likely will d/c home and interest in knee scooter. Patient stated she will contact CM if anything changes tomorrow
[2025-01-04] MEDS: ROXICODONE 5 MG PO (18:59)
[2025-01-04] MEDS: LOVENOX 40 MG SC (18:59)
[2025-01-05] MEDS: TYLENOL PO ×2 (00:11→08:27)
[2025-01-05] MEDS: ROXICODONE 5 MG PO ×6 (00:25→21:54)
[2025-01-05] MEDS: TYLENOL 650 MG PO ×6 (00:25→20:25)
[2025-01-05 07:00] VITALS: BP 102/57
[2025-01-05] MEDS: MOTRIN 600 MG PO ×3 (08:26→21:30)
[2025-01-05] MEDS: MIRALAX 17 GRAMS PO (08:27)
[2025-01-05] MEDS: COLACE PO (08:27)
[2025-01-05] MEDS: SENOKOT PO (08:27)
[2025-01-05] MEDS: ROXICODONE 2.5 MG PO ×2 (11:07→19:58)
--- NOTE | 2025-01-05 13:39 | W.PN.HOSP.TC ---
Addendum entered and electronically signed by Steven Blackmon DO 01/05/25 13:53:
Patient will require a semi-electric hospital bed due to the need for frequent positioning and to keep bottom of bed elevated to prevent excess edema in the LLE.
Original Note:
Today's Communication/Plan
-
Assessment / Plan
Assessment / Plan
Gen: continues to remain NAD, AAOx3.
Eyes: continues to remain EOMI, no scleral icterus.
Neck: supple.
CV: Regular rhythm, controlled rate
Resp: Equal expansion bilaterally, no increased respiratory effort
Abd: +BS, nondistended
MSK: Left lower extremity with postsurgical dressing in place
Skin: No rashes.
Neuro: continues to remain CN 2-12 intact, non-focal.
Psych: Normal mood and affect.
Acute L Trimalleolar fx:
- s/p closed reduction in the ER followed by external fixation by podiatry 12/28/24
- Now status post ORIF 01/03/[address] Vickers, tolerated procedure well
- PT/OT recommending acute rehab, nonweightbearing to left lower extremity
- podiatry managing
- pain control with scheduled Motrin, as needed oxycodone
FULL/Lovenox
Anticipated Discharge: 24 - 48 hours
Subjective/Interval History
-
Date of Service: January 05, 2025
Patient was seen and examined at bedside this morning. She has felt increasing pain and swelling in her left lower extremity over the past 12 hours as her nerve block has worn off. Has been participating appropriately with PT/OT.
Objective Data
-
Vital Signs:
Vital Signs
Temp Pulse Resp BP Pulse Ox
98.0 F 68 16 102/57 99
01/05/25 07:00 01/05/25 07:00 01/05/25 07:00 01/05/25 07:00 01/05/25 07:00
I&O
01/04/25 01/05/25 01/06/25
06:59 06:59 06:59
Intake Total 1360 / 1360 1340 / 1340 480 / 480
Balance 1360 / 1360 1340 / 1340 480 / 480
Review of Systems
-
History Source: Patient
All other systems: Reviewed and negative
Musculoskeletal: Reports Joint Pain (Left lower extremity pain and swelling around surgical site)
Physical Exam
-
General: No Apparent Distress
--- NOTE | 2025-01-05 13:50 | W.PN.UPDATE ---
Update Note
Progress Note Update
patient s/p left trimal ORIF with Ex Fix removal
-PT/OT, anticipate rehab
-Strict NWB LLE
-Dressings C/D/I, changed today
-Will follow, follow up in office in 2 weeks
--- NOTE | 2025-01-05 14:15 | CM ---
Addendum entered by Khadijah Rivas RN 01/05/25 15:11:
CM called [facility] - verified they received faxed information.
Original Note:
Reviewed the chart notes and spoke with the patient. Patient requesting hospital bed. CM called [facility] for list of DME companies that they contract with. Call placed to [facility] [place] ([phone]). Per territory account representative, they are
contracted with insurance. Script along with clinicals and face sheet faxed to ([phone]). CM continues to be available to patient/family and is monitoring medical plan for needs at discharge.
Plan: Discharge to home with [facility] services.
[2025-01-05 15:00] VITALS: BP 98/52
[2025-01-05] MEDS: MOTRIN PO (15:53)
--- NOTE | 2025-01-05 15:53 | VNURNOTE ---
Home Health Liaison met with patient and spouse at bedside to discuss [facility] nurse/therapy, visits, schedule and homebound status. Patient is agreeable and understands that visits at home will be 2-3 x per week to assess and teach medical
management. Patient is aware that [facility] will contact them for start of care in 1-2 days after discharge from . Offered to provide [facility] liaison contact #, pt declined, stated she has CM's #.
Hospital bed ordered through [facility]
Pt has bought a knee scooter on her own
Rolling walker needed upon DC
[facility] referral accepted in [facility].
[2025-01-05] MEDS: LOVENOX 40 MG SC (17:12)
[2025-01-05] MEDS: COLACE 100 MG PO (20:01)
[2025-01-05] MEDS: SENOKOT 17.2 MG PO (20:02)
[2025-01-05 23:00] VITALS: BP 93/59
[2025-01-06] MEDS: TYLENOL 650 MG PO ×7 (00:15→23:45)
[2025-01-06] MEDS: ROXICODONE 2.5 MG PO ×4 (00:25→21:36)
[2025-01-06] MEDS: ROXICODONE 5 MG PO ×5 (03:27→23:45)
[2025-01-06 07:20] VITALS: BP 101/46
--- NOTE | 2025-01-06 09:53 | VNURNOTE ---
Addendum entered by Giselle Bell RN 01/06/25 15:08:
Rec'ed confirmation from Vani at [facility] they will deliver hosp bed to patient's house tomorrow. She will call pt to discuss delivery time, co-pay.
Original Note:
Called [facility], spoke with Sherrill. Per Sherrill, they do not service [place].
Called [facility], spoke w/Callie. Confirmed they service [place]. [facility] does not deliver on weekends. Faxed hospital bed Rx and clinicals to [facility] fax [phone] Local office phone # [phone].
[2025-01-06] MEDS: COLACE PO (10:20)
[2025-01-06] MEDS: MIRALAX 17 GRAMS PO (10:20)
[2025-01-06] MEDS: MOTRIN 600 MG PO ×3 (10:20→21:35)
[2025-01-06] MEDS: SENOKOT PO (10:21)
--- NOTE | 2025-01-06 11:34 | W.DCSUMMARY ---
Addendum entered and electronically signed by Steven Blackmon DO 01/07/25 12:26:
Actual discharge date is 01/07/2025, as patient had to wait until medical equipment was delivered to her home.
Original Note:
Discharge Summary
Discharge Data
Date of Admission: 12/28/24
Date of Discharge: 01/06/25
Total time spent discharging patient (in min): 58
-
Pending Results: No
Hospital Course
Ms. Kendall is a 59-year-old female with no significant medical history who presented with left ankle pain after tripping and falling down 1 flight of stairs. She was found to have a left trimalleolar fracture. She initially underwent close
reduction and placement of external fixation device on 12/28/2024. She was later brought to the OR on 01/03/[address] Vickers (podiatry) for ORIF and removal of external fixation device. She tolerated the procedure well and received 3 doses of IV
cefazolin perioperatively. She is strict nonweightbearing to left lower extremity postoperatively. She will be discharged to home with a hospital bed, bedside commode, and rolling walker. She will need to follow-up in the podiatry office in 2
weeks for ongoing management. She will be discharged home with medications for pain management. At time of hospital discharge she was medically stable.
Gen: continues to remain NAD, AAOx3.
Eyes: continues to remain EOMI, no scleral icterus.
Neck: supple.
CV: Regular rhythm, controlled rate
Resp: Equal expansion bilaterally, no increased respiratory effort
Abd: +BS, nondistended
MSK: Left lower extremity with postsurgical dressing in place
Skin: No rashes.
Neuro: continues to remain CN 2-12 intact, non-focal.
Psych: Normal mood and affect.
Discharge Plan
-
Patient Disposition: Home with Home Care
Discharge Diagnosis/Procedures: Left trimalleolar fracture
Activity: Do not bear weight L leg and With Walker
Activity Restrictions/Additional Instructions:
Ms. Kendall is a 59-year-old female with no significant medical history who presented with left ankle pain after tripping and falling down 1 flight of stairs. She was found to have a left trimalleolar fracture. She initially underwent close
reduction and placement of external fixation device on 12/28/2024. She was later brought to the OR on 01/03/[address] Vickers (podiatry) for ORIF and removal of external fixation device. She tolerated the procedure well and received 3 doses of IV
cefazolin perioperatively. She is strict nonweightbearing to left lower extremity postoperatively. She will be discharged to home with a hospital bed, bedside commode, and rolling walker. She will need to follow-up in the podiatry office in 2
weeks for ongoing management. She will be discharged home with medications for pain management. At time of hospital discharge she was medically stable.
Referrals:
Ann Toure DO [Family Provider, Family Practice]
Julian Vickers DPM [Active, Podiatry]
Prescriptions:
New
polyethylene glycol 3350 17 gram Powder In Packet
17 g PO DAILY 5 Days Qty: 14 0RF
docusate sodium 100 mg Capsule
100 mg PO BID 5 Days Qty: 10 0RF
ibuprofen 600 mg Tablet
600 mg PO TID 5 Days Qty: 15 0RF
sennosides [Brittny-holden] 8.6 mg Tablet
17.2 mg PO BID 5 Days Qty: 20 0RF
acetaminophen 325 mg Tablet
650 mg PO Q4HWA 5 Days Qty: 60 0RF
oxycodone 5 mg Tablet
5 mg PO Q4HPRN PRN (Reason: severe pain) Qty: 24 0RF
Continued
therapeutic multivitamin Tablet
1 tab PO DAILY
estradiol 1 mg Tablet
1 mg PO DAILY
progesterone micronized 100 mg Capsule
100 mg PO HS
elderberry fruit 200 mg Capsule
200 mg PO DAILY
Discharge Orders:
Discharge Patient (As Directed); Ordered 01/06/25
Ordered By: Steven Blackmon
Discharge Date and Time
Print Language: SOMALI
--- NOTE | 2025-01-06 12:12 | CM ---
Addendum entered by Amanda Gant 01/06/25 13:06:
Spoke with patient via phone; discharge plan and DME issue discussed
Original Note:
Plan: Discharge to home tomorrow; DME company was unable to deliver hospital bed to home today. Attending notified; Script for Rolling Walker and Commode requested for PT to provide at discharge
[2025-01-06 16:43] VITALS: BP 100/57
[2025-01-06] MEDS: LOVENOX 40 MG SC (17:50)
[2025-01-06] MEDS: COLACE 100 MG PO (20:30)
[2025-01-06] MEDS: SENOKOT 17.2 MG PO (20:30)
[2025-01-06 23:00] VITALS: BP 96/54
[2025-01-07] MEDS: TYLENOL 650 MG PO ×2 (04:00→09:44)
[2025-01-07] MEDS: ROXICODONE 5 MG PO ×2 (05:10→11:03)
[2025-01-07 07:20] VITALS: BP 102/61
[2025-01-07] MEDS: SENOKOT 17.2 MG PO (07:55)
[2025-01-07] MEDS: COLACE 100 MG PO (07:55)
[2025-01-07] MEDS: MIRALAX 17 GRAMS PO (07:55)
[2025-01-07] MEDS: MOTRIN 600 MG PO (07:56)
[2025-01-07] MEDS: ROXICODONE 2.5 MG PO (08:07)
--- NOTE | 2025-01-07 10:13 | CM ---
Patients seen at bedside
hospital bed to be delivered today
[facility]
Patient received commode/walker from PT
PLAN: Home with [facility]
to transport
[2025-01-07 11:15] VITALS: BP 101/71
== END 2025-01-07 12:20 | disposition home health service (06) | DRG 494 ==
LOC: 2 SOUTH 15:48
PROVIDERS: ADMITTING PHYSICIAN Internal Medicine; ATTENDING PHYSICIAN Internal Medicine; CONSULT PHYSICIAN Student in an Organized Health Care Education/Training Program; EMERGENCY PHYSICIAN Emergency Medicine; FAMILY PHYSICIAN Family Medicine
PROC: 0QHH35Z Insertion of External Fixation Device into Left Tibia, Percutaneous Approach (ICD-10-PCS; 2024-12-28)
PROC: 0QHM35Z Insertion of External Fixation Device into Left Tarsal, Percutaneous Approach (ICD-10-PCS; 2024-12-28)
PROC: 0QPMX5Z Removal of External Fixation Device from Left Tarsal, External Approach (ICD-10-PCS; 2025-01-03)
PROC: 0QPHX5Z Removal of External Fixation Device from Left Tibia, External Approach (ICD-10-PCS; 2025-01-03)
PROC: 0QSH04Z Reposition Left Tibia with Internal Fixation Device, Open Approach (ICD-10-PCS; 2025-01-03)
DX: S82.852A Displaced trimalleolar fracture of left lower leg, initial encounter for closed fracture (principal); N32.81 Overactive bladder; W10.9XXA Fall (on) (from) unspecified stairs and steps, initial encounter; Y93.01 Activity, walking, marching and hiking; Y92.9 Unspecified place or not applicable; Z88.8 Allergy status to other drugs, medicaments and biological substances; Z88.4 Allergy status to anesthetic agent
CPT/HCPCS: 27840; 29515; 73590; 73600; 73610; 73700; 76000; 80048; 80053; 85025; 85027; 85610; 85730; 96361; 96374; 96375; 96376; 97116; 97162; 97167; 97168; 97530; 97535; 99285; C1713